=== PATIENT | female | born 1960 | race African-American/Black ===

== ENCOUNTER 2022-10-29 20:41 | Inpatient (IN) | payer MEDICARE, OTHER ==
[~2022-10-29] VITALS: Ht 165.1 cm; Wt 104.3 kg
--- NOTE | 2022-10-29 21:00 | NUR ---
PT BIBRA 350 FOR PSYCH EVAL 2/2 AGGRESSIVE BEHAVIOR & ATTEMPT TO [facility], SAFTEY MEASURES IN PLACE, AWAITING TO BE SEEN BY .
--- NOTE | 2022-10-29 21:26 | NUR ---
COVID SWAB DONE AND SENT TO LAB
[2022-10-29 21:36] LABS: BASOPHILS % (AUTO) 0.5 % (0.0-2.0); EOSINOPHILS % (AUTO) 1.6 % (0.0-6.0); HEMATOCRIT 38 % (33-45); HEMOGLOBIN 12.3 g/dL (11.5-14.8); LYMPHOCYTES # (AUTO) 1.9 K/uL (0.8-4.8); LYMPHOCYTES % (AUTO) 24.3 % (20.0-44.0); MEAN CORPUSCULAR HGB CONC 33 g/dl (31.0-36.0); MEAN CORPUSCULAR VOLUME 83 fL (82-100); MONOCYTES # (AUTO) 0.7 K/uL (0.1-1.30); MONOCYTES % (AUTO) 8.9 % (2.0-12.0); NEUTROPHILS # (AUTO) 4.9 K/uL (1.8-8.9); NEUTROPHILS % (AUTO) 64.7 % (43.0-81.0); PLATELET COUNT (AUTO) 298 K/uL (150-450); RED BLOOD CELL COUNT(AUTO) 4.52 MIL/uL (4.0-5.2); WHITE BLOOD COUNT (AUTO) 7.6 K/uL (4.3-11.0)
--- NOTE | 2022-10-29 21:40 | NUR ---
URINE SAMPLE TAKEN AND SENT TO LAB.
[2022-10-29 21:45] LABS: CALCIUM, SERUM 9.1 mg/dL (8.5-10.1); CARBON DIOXIDE 31 mmol/L (21-32); CHLORIDE 103 mmol/L (98-107); CREATININE 1.3 mg/dL (0.6-1.3); GLUCOSE 96 mg/dL (74-106); POTASSIUM 3.2 mmol/L (3.5-5.1); SODIUM SERUM 141 mmol/L (136-145); UREA NITROGEN, BLOOD 15 mg/dL (7-18)
[2022-10-29 21:51] LABS: ALANINE AMINOTRANSFERASE 39 U/L (12-78); ALBUMIN 3.5 g/dL (3.4-5.0); ALKALINE PHOSPHATASE 101 U/L (46-116); ASPARTATE AMINOTRANSFERASE 34 U/L (15-37); BILIRUBIN,DIRECT 0.1 mg/dL (0.0-0.2); BILIRUBIN,TOTAL 0.5 mg/dL (0.2-1.0); TOTAL PROTEIN, SERUM 7.7 g/dL (6.4-8.2)
[2022-10-29 21:52] LABS: ALCOHOL, BLOOD < 3 mg/dL (0-0)
[2022-10-29 22:24] LABS: BILIRUBIN,URINE NEGATIVE (NEGATIVE); COLOR,URINE YELLOW (YELLOW); LEUKOCYTE ESTERASE ,URINE 1+ (NEGATIVE); NITRITE, URINE NEGATIVE (NEGATIVE); PH,URINE 5.5 (5.0-8.0); PROTEIN,URINE 2+ mg/dl (NEGATIVE); UGLUCOSE NEGATIVE (NEGATIVE); UROBILINOGEN,URINE 0.2 EU/dL (0.2)
[2022-10-29 22:41] LABS: BACTERIA,URINE None seen /HPF (None Seen); SQUAMOUS EPITHELIAL CELL,UR Rare /HPF (None Seen)
--- NOTE | 2022-10-30 01:00 | NUR ---
SEEN BY MARIO HEARD FOR PSYCH EVAL
[2022-10-30] MEDS ORDERED: SENN-18 PO (01:05)
[2022-10-30] MEDS ORDERED: RISP4TAB4 PO (01:05)
[2022-10-30] MEDS ORDERED: MULT-447 PO (01:05)
[2022-10-30] MEDS ORDERED: MIRT-121 PO ×2 (01:05)
[2022-10-30] MEDS ORDERED: AMLO10TA4 PO (01:05)
[2022-10-30] MEDS ORDERED: POLY17PO4 PO (01:05)
[2022-10-30] MEDS ORDERED: LURA40TA PO (01:05)
[2022-10-30] MEDS ORDERED: HYDR-4076 PO (01:05)
[2022-10-30] MEDS ORDERED: QUET25TA PO (01:05)
--- NOTE | 2022-10-30 01:08 | NUR ---
report given to Renalyn RN, pt going to bed 211-B
--- NOTE | 2022-10-30 01:35 | NUR ---
patient transported to gps for cont of care. pt on ra, no complaints of pain and not in any s/sx of distress.
--- NOTE | 2022-10-30 01:40 | NUR ---
RN ADMISION NOTES ADMITTED A 61-Y/O, FEMALE, [facility] INITIALLY PT CAME FROM [facility]. ADMITTED ON A 5150 HOLD FOR DTO/GD. PER HOLD, PT TRIED TO [facility] FROM THE [facility]F AND REFUSING MEDICATIONS. UPON FACE TO FACE EVALUATION, PATIENT IS CONFUSED, DISORGANIZED, EASILY GETS AGITATED/IRRITABLE. VERBALIZATION OF FEELINGS ENCOURAGED. SKIN ASSESSMENT DONE. SKIN INTACT. ALL BELONGINGS WERE CHECKED FOR CONTRABAND. PATIENT'S RIGHTS WERE DISCUSSED AND BOOKLET WAS GIVEN. PATIENT REFUSED TO SIGN ADMISSION PAPERWORK/CONSENT DUE TO CONFUSION. CONTACTED DR. KELSEY AND HOSPITALIST DR. ORTEZ AND INFORMED THEM OF THE ADMISSION. WILL CONTINUE TO MONITOR THE PATIENT Q15 MINUTES FOR SAFETY.
[2022-10-30] MEDS ORDERED: clonazePAM 0.5 MG TABLET PO PRN (02:30)
[2022-10-30] MEDS ORDERED: ACETAMINOPHEN 325 MG TABLET PO PRN (02:30)
[2022-10-30] MEDS ORDERED: TEMAZEPAM 7.5 MG CAPSULE PO PRN (02:30)
[2022-10-30] MEDS ORDERED: BLOOD SUGAR DIAGNOSTIC 1 EACH STRIP IN ONE (02:30)
[2022-10-30] MEDS ORDERED: MAGNESIUM HYDROXIDE 30 ML UDC PO PRN (02:30)
[2022-10-30] MEDS ORDERED: MAG HYDROX/AL HYDROX/SIMETH 30 ML UDC PO PRN (02:30)
[2022-10-30 03:39] VITALS: BP 142/90
[2022-10-30 08:00] VITALS: BP 147/85
[2022-10-30] MEDS: POLYETHYLENE GLYCOL 3350 17 GM POWD.PACK PO SCH ×2 (09:55→16:15)
[2022-10-30] MEDS: hydrALAZINE HCL 25 MG TABLET PO SCH ×3 (09:55→16:16)
[2022-10-30] MEDS: AMLODIPINE BESYLATE 10 MG TABLET PO SCH (09:55)
[2022-10-30] MEDS: DIVALPROEX SODIUM 125 MG TABLET.DR PO SCH ×2 (09:55→21:16)
[2022-10-30] MEDS: QUETIAPINE FUMARATE 25 MG TABLET PO SCH ×2 (09:55→16:15)
[2022-10-30] MEDS ORDERED: HYDR-4209 PO (09:59)
[2022-10-30] MEDS ORDERED: ACET-868 PO (09:59)
[2022-10-30] MEDS ORDERED: CYCL5TAB PO (09:59)
--- NOTE | 2022-10-30 12:02 | NUR ---
JOSEPH Clinical Note: Pt placed on a 5150 hold for danger to others and GD. Per hold, pt was brought to the hospital due to being aggressive at the facility. Patient resides at [facility] [address] [place] [address] ([phone]). JOSEPH spoke with Melissa llanes from [facility] who stated pt is welcomed back. JOSEPH will contact pt's son Robert ([phone]) to discuss treatment/discharge plan.
--- NOTE | 2022-10-30 12:02 | NUR ---
JOSEPH Initial Discharge Note: Patient resides at [facility] [address] [place] [address] ([phone]). JOSEPH spoke with Melissa llanes from [facility] who stated pt is welcomed back. JOSEPH will contact pt's son Robert ([phone]) to discuss treatment/discharge plan. JOSEPH will work with the MD, family, and pt to help coordinate appropriate discharge.
--- NOTE | 2022-10-30 12:07 | NUR ---
Treatment Plan: Pt refused to sign treatment plan and was suspicious.
--- NOTE | 2022-10-30 13:40 | NUR ---
JOSEPH Family Contact: JOSEPH contacted pt's son Robert ([phone]) and left a detailed voicemail of treatment/discharge plan.
[2022-10-30 16:00] VITALS: BP 128/63
[2022-10-30] MEDS ORDERED: POTASSIUM CHLORIDE 20 MEQ TAB.PRT.SR PO ONE (16:00)
--- NOTE | 2022-10-30 18:08 | NUR ---
RN-NOTES PATIENT IN BED INTERMITTENTLY SLEEPING EASILY AROUSED A/OX2,GUARDED.NO ACUTE DISTRESS NOTED.COMPLIANT WITH MEDICATIONS.PATIENT REFUSE GROUPS DESPITE ENCOURAGEMENT. PATIENT PREFERS TO STAY IN THE ROOM AND REST.ALL NEEDS ATTENDED AND ANTICIPATED. PATIENT AMBULATORY WITH STEADY GAIT.WILL CONT.MONITORING FOR SAFETY AND BEHAVIOR.WILL ENDORSE TO INCOMING NURSE FOR THE CONTINUITY OF CARE.
--- NOTE | 2022-10-30 20:07 | NUR ---
TUBER MACHINE CUTTER NOTES:RECEIVED PATIENT IN BED SLEEPING BUT EASY TO AROUSED. A/OX2,GUARDED.NO ACUTE DISTRESS NOTED.BREATHING NON-LABORED WITH EQUAL RISE AND FALL OF THE CHEST.COMPLIANT WITH MEDICATIONS.PATIENT IS AMBULATORY WITH STEADY GAIT. NO C/O PAIN NOR DISCOMFORT AT THIS TIME.ALL NEEDS ATTENDED AND ANTICIPATED. WILL CONTINUE TO MONITOR FOR SAFETY AND BEHAVIOR Q15 MINS WITH THE HELP OF STAFF.
[2022-10-30 20:24] VITALS: BP 130/89
[2022-10-30] MEDS: SENNOSIDES 8.6 MG TABLET PO SCH (21:16)
[2022-10-30] MEDS: MIRTAZAPINE 15 MG TABLET PO SCH (21:16)
[2022-10-31 07:18] LABS: CHOLESTEROL 223 mg/dL (<200); HDL CHOLESTEROL 44 mg/dL (40-60); LDL 155 mg/dL (0-99); TRIGLYCERIDES 116 mg/dL (30-150)
[2022-10-31 07:19] LABS: ALBUMIN 3.1 g/dL (3.4-5.0); BILIRUBIN,TOTAL 0.4 mg/dL (0.2-1.0); CALCIUM, SERUM 8.9 mg/dL (8.5-10.1); CREATININE 1.2 mg/dL (0.6-1.3); POTASSIUM 3.7 mmol/L (3.5-5.1)
[2022-10-31 08:00] VITALS: BP 141/88
[2022-10-31] MEDS: DIVALPROEX SODIUM 125 MG TABLET.DR PO SCH ×2 (08:11→21:12)
[2022-10-31] MEDS: POLYETHYLENE GLYCOL 3350 17 GM POWD.PACK PO SCH ×2 (08:11→16:19)
[2022-10-31] MEDS: hydrALAZINE HCL 25 MG TABLET PO SCH ×3 (08:11→16:19)
[2022-10-31] MEDS: QUETIAPINE FUMARATE 25 MG TABLET PO SCH ×2 (08:11→16:19)
[2022-10-31] MEDS: AMLODIPINE BESYLATE 10 MG TABLET PO SCH (08:25)
[2022-10-31 16:00] VITALS: BP 157/96
--- NOTE | 2022-10-31 18:19 | NUR ---
RN-NOTES PATIENT VISIBLE IN THE UNIT A/OX2,GUARDED.NO ACUTE DISTRESS NOTED.COMPLIANT WITH MEDICATIONS.PATIENT ATTENDED ACTIVITY GROUPS.ALL NEEDS ATTENDED AND ANTICIPATED. PATIENT AMBULATORY WITH STEADY GAIT.WILL CONT.MONITORING FOR SAFETY AND BEHAVIOR.WILL ENDORSE TO INCOMING NURSE FOR THE CONTINUITY OF CARE.
--- NOTE | 2022-10-31 19:35 | NUR ---
FOOD CRITIC NOTES:RECEIVED PATIENT RESTING QUIETLY IN BED. A/OX2, GUARDED, DELUSIONAL, NO ACUTE DISTRESS NOTED. ON ROOM AIR. BREATHING NON-LABORED WITH EQUAL RISE AND FALL OF THE CHEST.COMPLIANT WITH MEDICATIONS.PATIENT IS AMBULATORY WITH STEADY GAIT. NO C/O PAIN NOR DISCOMFORT AT THIS TIME. BED IN LOWEST,LOCKED POSITIONED WITH SIDE RAILS UP X 2A. LL NEEDS ATTENDED AND ANTICIPATED. WILL CONTINUE TO MONITOR FOR SAFETY AND BEHAVIOR Q15 MINS WITH THE HELP OF STAFF.
[2022-10-31 20:00] VITALS: BP 157/88
[2022-10-31] MEDS: SENNOSIDES 8.6 MG TABLET PO SCH (21:12)
[2022-10-31] MEDS: MIRTAZAPINE 15 MG TABLET PO SCH (21:12)
[2022-11-01 08:00] VITALS: BP 148/97
[2022-11-01] MEDS: POLYETHYLENE GLYCOL 3350 17 GM POWD.PACK PO SCH ×2 (08:07→16:50)
[2022-11-01] MEDS: DIVALPROEX SODIUM 125 MG TABLET.DR PO SCH ×2 (08:07→21:05)
[2022-11-01] MEDS: QUETIAPINE FUMARATE 25 MG TABLET PO SCH ×2 (08:08→16:50)
[2022-11-01] MEDS: hydrALAZINE HCL 25 MG TABLET PO SCH ×3 (08:08→16:51)
[2022-11-01] MEDS: AMLODIPINE BESYLATE 10 MG TABLET PO SCH (08:08)
[2022-11-01 16:00] VITALS: BP 138/79
[2022-11-01 20:00] VITALS: BP 148/84
--- NOTE | 2022-11-01 20:39 | NUR ---
DESIGN ANALYST NOTES:RECEIVED PATIENT IN BED ASLEEP . A/OX2, GUARDED, DELUSIONAL, NO ACUTE DISTRESS NOTED. ON ROOM AIR. BREATHING NON-LABORED WITH EQUAL RISE AND FALL OF THE CHEST.COMPLIANT WITH MEDICATIONS.PATIENT IS AMBULATORY WITH STEADY GAIT. NO C/O PAIN NOR DISCOMFORT AT THIS TIME. ASSISTING ON TURNING AND REPOSITIONING Q2H AND PRN FOR CIRCULATION AND COMFORT.BED IN LOWEST,LOCKED POSITIONED WITH SIDE RAILS UP X 2. ALL NEEDS ATTENDED AND ANTICIPATED. WILL CONTINUE TO MONITOR FOR SAFETY AND BEHAVIOR Q15 MINS WITH THE HELP OF STAFF.
[2022-11-01] MEDS: SENNOSIDES 8.6 MG TABLET PO SCH (21:05)
--- NOTE | 2022-11-02 07:50 | NUR ---
RN OPENING NOTE RECEIVED PATIENT AWAKE IN BED, RESTING, A/O X 1-2, COOPERATIVE, DELUSIONAL. NO S/S OF PAIN NOTED AT THIS TIME. ON ROOM AIR, BREATHING EVEN AND UNLABORED, NO DISTRESS OR SHORTNESS OF BREATH NOTED. PATIENT IS COMPLIANT WITH MEDICATIONS. PATIENT DENIES SUICIDE IDEATION AND HOMICIDAL IDEATIONS AT THIS TIME. PATIENT EDUCATED ON THE USE OF CALL LIGHT. FALL AND SAFETY MEASURES IN PLACE BED ALARM ON, BED IN LOW AND LOCK POSITION, CALL LIGHT AND TABLE WITHIN EASY REACH, SIDE RAILS UP X2. WILL CONTINUE TO MONITOR Q15 MINUTES WITH THE HELP OF STAFF TO MAINTAIN SAFETY.
[2022-11-02 08:00] VITALS: BP 161/76
[2022-11-02] MEDS: POLYETHYLENE GLYCOL 3350 17 GM POWD.PACK PO SCH ×3 (08:34→16:48)
[2022-11-02] MEDS: AMLODIPINE BESYLATE 10 MG TABLET PO SCH (08:35)
[2022-11-02] MEDS: DIVALPROEX SODIUM 125 MG TABLET.DR PO SCH ×3 (08:35→16:47)
[2022-11-02] MEDS: hydrALAZINE HCL 25 MG TABLET PO SCH ×3 (08:36→16:48)
[2022-11-02] MEDS: QUETIAPINE FUMARATE 25 MG TABLET PO SCH (08:36)
[2022-11-02 12:23] VITALS: BP 141/73
[2022-11-02 20:30] VITALS: BP 149/79
[2022-11-02] MEDS: SENNOSIDES 8.6 MG TABLET PO SCH (21:34)
[2022-11-02] MEDS: QUETIAPINE FUMARATE 100 MG TABLET PO SCH (21:34)
[2022-11-03 08:00] VITALS: BP 147/77
[2022-11-03] MEDS: POLYETHYLENE GLYCOL 3350 17 GM POWD.PACK PO SCH ×3 (08:19→17:00)
[2022-11-03] MEDS: DIVALPROEX SODIUM 125 MG TABLET.DR PO SCH ×3 (08:20→17:14)
[2022-11-03] MEDS: AMLODIPINE BESYLATE 10 MG TABLET PO SCH (08:21)
[2022-11-03] MEDS: hydrALAZINE HCL 25 MG TABLET PO SCH ×3 (08:21→16:36)
[2022-11-03] MEDS: QUETIAPINE FUMARATE 25 MG TABLET PO SCH (08:25)
[2022-11-03 16:00] VITALS: BP_SYST 148; BP_SYST 150; BP_DIAS 55; BP_DIAS 87
--- NOTE | 2022-11-03 19:30 | NUR ---
GPS RN OPENING NOTE RECEIVED PT AWAKE IN BED. A/O X1-2 AND ABLE TO MAKE NEEDS KNOWN. PT STABLE ON ROOM AIR. NO SOB OR S/S OF RESPIRATORY DISTRESS. BREATHING EVEN AND UNLABORED. NO COMPLAINTS OF PAIN OR DISCOMFORT AT THIS TIME. DELUSIONAL AND COOPERATIVE. DENIES SI/HI AT THIS TIME. AMBULATORY WITH STEADY GAIT.WILL CONT TO MONITOR Q15MIN FOR SAFETY AND BEHAVIOR.
[2022-11-03 20:03] VITALS: BP 133/61
[2022-11-03] MEDS: QUETIAPINE FUMARATE 100 MG TABLET PO SCH (21:24)
[2022-11-03] MEDS: SENNOSIDES 8.6 MG TABLET PO SCH (21:24)
--- NOTE | 2022-11-04 06:38 | NUR ---
GPS RN CLOSING NOTE PT AWAKE IN BED. A/O X1-2 AND ABLE TO MAKE NEEDS KNOWN. PT STABLE ON ROOM AIR. NO SOB OR S/S OF RESPIRATORY DISTRESS. BREATHING EVEN AND UNLABORED. NO COMPLAINTS OF PAIN OR DISCOMFORT AT THIS TIME. DELUSIONAL AND COOPERATIVE. DENIES SI/HI AT THIS TIME. AMBULATORY WITH STEADY GAIT. MED COMPLIANT THIS SHIFT. WILL CONT TO MONITOR Q15MIN FOR SAFETY AND BEHAVIOR AND WILL ENDORSE TO ONCOMING NURSE FOR MITCHELL.
[2022-11-04 08:00] VITALS: BP 150/78
[2022-11-04] MEDS: POLYETHYLENE GLYCOL 3350 17 GM POWD.PACK PO SCH ×2 (09:17→16:58)
[2022-11-04] MEDS: QUETIAPINE FUMARATE 25 MG TABLET PO SCH (09:18)
[2022-11-04] MEDS: hydrALAZINE HCL 25 MG TABLET PO SCH ×4 (09:19→16:55)
[2022-11-04] MEDS: DIVALPROEX SODIUM 125 MG TABLET.DR PO SCH ×4 (09:19→16:55)
[2022-11-04] MEDS: AMLODIPINE BESYLATE 10 MG TABLET PO SCH (09:20)
[2022-11-04 15:57] VITALS: BP 152/67
[2022-11-04 20:21] VITALS: BP 133/66
[2022-11-04] MEDS: QUETIAPINE FUMARATE 100 MG TABLET PO SCH (20:47)
[2022-11-04] MEDS: SENNOSIDES 8.6 MG TABLET PO SCH (21:04)
[2022-11-05 08:00] VITALS: BP 151/90
[2022-11-05] MEDS: QUETIAPINE FUMARATE 25 MG TABLET PO SCH (08:09)
[2022-11-05] MEDS: DIVALPROEX SODIUM 125 MG TABLET.DR PO SCH ×3 (08:10→16:26)
[2022-11-05] MEDS: AMLODIPINE BESYLATE 10 MG TABLET PO SCH (08:10)
[2022-11-05] MEDS: hydrALAZINE HCL 25 MG TABLET PO SCH ×3 (08:10→16:26)
[2022-11-05] MEDS: POLYETHYLENE GLYCOL 3350 17 GM POWD.PACK PO SCH ×2 (08:31→16:27)
--- NOTE | 2022-11-05 10:55 | NUR ---
Court Notification: SW attempted to contact pt's son Robert ([phone]) and left a voicemail of [phone].
--- NOTE | 2022-11-05 10:56 | NUR ---
Court Hearing: Patient's court hearing for 7160 was today and it was upheld for GD.
[2022-11-05 16:05] VITALS: BP 160/89
[2022-11-05] MEDS ORDERED: QUETIAPINE FUMARATE 25 MG TABLET PO SCH (17:00)
[2022-11-05 19:59] VITALS: BP 138/75
[2022-11-05 20:30] VITALS: BP 138/75
[2022-11-05] MEDS: QUETIAPINE FUMARATE 100 MG TABLET PO SCH (21:08)
[2022-11-05] MEDS: SENNOSIDES 8.6 MG TABLET PO SCH (21:08)
--- NOTE | 2022-11-06 06:40 | NUR ---
RN NOTES - PATIENT SLEEPING INTERMITTENTLY. ABLE TO VERBALIZE NEEDS. NO SI/HI AT THIS TIME. GUARDED AND WITH DELUSIONAL THOUGHTS OF BEING . REORIENTED TO REALITY. ROOM CHECKED FOR CONTRABAND. ALL DUE MEDS GIVEN AND NEEDS ATTENDED. AMBULATORY WITH STEADY GAIT. BED LOCKED AND IN LOW POSITION, SIDE RAILS UP X2, BED ALARM ON, CALL LIGHT WITHIN REACH. WILL ENDORSE TO NEXT SHIFT FOR MITCHELL.
[2022-11-06 08:00] VITALS: BP 154/81
[2022-11-06] MEDS: QUETIAPINE FUMARATE 25 MG TABLET PO SCH (08:43)
[2022-11-06] MEDS: POLYETHYLENE GLYCOL 3350 17 GM POWD.PACK PO SCH ×2 (08:43→16:11)
[2022-11-06] MEDS: DIVALPROEX SODIUM 125 MG TABLET.DR PO SCH ×3 (08:43→16:11)
[2022-11-06] MEDS: AMLODIPINE BESYLATE 10 MG TABLET PO SCH (08:44)
[2022-11-06] MEDS: hydrALAZINE HCL 25 MG TABLET PO SCH ×3 (08:44→16:12)
[2022-11-06 16:00] VITALS: BP 144/76
--- NOTE | 2022-11-06 17:42 | NUR ---
RN-NOTES PATIENT IS VISIBLE IN THE UNIT PARTICIPATING IN THE GROUP A/O X1-2 GUARDED, NO ACUTE DISTRESS NOTED. COOPERATIVE WITH STAFF .COMPLIANT WITH MEDICATIONS. AMBULATORY STEADY GAIT. ALL NEEDS ATTENDED AND ANTICIPATED. WILL CONT. MONITORING FOR SAFETY AND BEHAVIOR.WILL ENDORSE TO INCOMING SHIFT FOR THE CONTINUITY OF CARE.
--- NOTE | 2022-11-06 19:42 | NUR ---
GPS RN OPENING NOTE RECEIVED PT AWAKE IN DINING ROOM WATCHING TELEVISION. A/O X1-2 AND ABLE TO MAKE NEEDS KNOWN. PT STABLE ON ROOM AIR. NO SOB OR S/S OF RESPIRATORY DISTRESS. BREATHING EVEN AND UNLABORED. NO COMPLAINTS OF PAIN OR DISCOMFORT AT THIS TIME. DELUSIONAL AND COOPERATIVE. DENIES SI/HI AT THIS TIME. AMBULATORY WITH STEADY GAIT.SAFETY PRECAUTIONS MAINTAINED. WILL CONT TO MONITOR Q15MIN FOR SAFETY AND BEHAVIOR
[2022-11-06 20:00] VITALS: BP 154/74
[2022-11-06] MEDS: QUETIAPINE FUMARATE 100 MG TABLET PO SCH (20:44)
[2022-11-06] MEDS: SENNOSIDES 8.6 MG TABLET PO SCH (21:34)
[2022-11-07 08:00] VITALS: BP 152/93
[2022-11-07] MEDS: DIVALPROEX SODIUM 125 MG TABLET.DR PO SCH ×3 (08:15→16:54)
[2022-11-07] MEDS: AMLODIPINE BESYLATE 10 MG TABLET PO SCH (08:15)
[2022-11-07] MEDS: QUETIAPINE FUMARATE 25 MG TABLET PO SCH (08:15)
[2022-11-07] MEDS: POLYETHYLENE GLYCOL 3350 17 GM POWD.PACK PO SCH ×2 (08:15→16:53)
[2022-11-07] MEDS: hydrALAZINE HCL 25 MG TABLET PO SCH ×3 (08:16→16:55)
[2022-11-07 16:00] VITALS: BP 159/93
--- NOTE | 2022-11-07 17:56 | NUR ---
RN-NOTES PATIENT IS VISIBLE IN THE UNIT PARTICIPATING IN THE GROUP A/O X1-2 GUARDED, NO ACUTE DISTRESS NOTED. COOPERATIVE WITH STAFF .COMPLIANT WITH MEDICATIONS. NOTED WITH EPISODE OF MUMBLING AND TALKING TO SELF.AMBULATORY STEADY GAIT. ALL NEEDS ATTENDED AND ANTICIPATED. WILL CONT. MONITORING FOR SAFETY AND BEHAVIOR.WILL ENDORSE TO INCOMING SHIFT FOR THE CONTINUITY OF CARE.
--- NOTE | 2022-11-07 19:29 | NUR ---
GPS RN NOTE, RECEIVED PATIENT AWAKE AND IN BED, NO S/S OR COMPLAINTS OF PAIN AT THIS TIME. PATIENT IS DISPLAYING NO S/S OF APPARENT DISTRESS AT THIS TIME. PATIENT BREATHING IS UNLABORED WITH EQUAL RISE AND FALL OF THE CHEST. PATIENT IS ALERT AND ORIENTED X 2 ON ROOM AIR WITH A SPO2 99%. PATIENT IS COMPLIANT WITH MEDICATIONS, RESPONDING TO INTERNAL STIMULI, MAKES NEEDS KNOWN, AND COOPERATIVE. PATIENT DENIES SUICIDAL AND HOMICIDAL IDEATIONS AT THIS TIME. PATIENT ASSISTED WITH TURNING AND REPOSITIONING Q2HR AND PRN FOR COMFORT AND CIRCULATION. PATIENT HAS NO NEEDS AT THIS TIME. PATIENT EDUCATED ON THE USE OF THE CALL RODRIGUES. PATIENT BED SIDE RAILS UP X 2 FOR SAFETY. PATIENT BED IS LOCKED, LOW, WITH BED ALARM ON. WILL CONTINUE TO MONITOR THIS PATIENT Q15 MINUTES WITH THE HELP OF STAFF TO MAINTAIN SAFETY.
[2022-11-07 20:00] VITALS: BP 120/77
[2022-11-07] MEDS: QUETIAPINE FUMARATE 100 MG TABLET PO SCH ×2 (21:00→21:12)
[2022-11-07] MEDS: SENNOSIDES 8.6 MG TABLET PO SCH ×2 (21:12→21:18)
--- NOTE | 2022-11-07 21:18 | NUR ---
GPS RN NOTE, PATIENT REFUSED SEROQUEL 200MG PO 2100 AND SENOKOT 8.6MG PO HS. OFFERED SEROQUEL AND SENOKOT THREE TIMES AND STILL PATIENT REFUSED STATING, " NO I DON'T TAKE THAT AND I WANT TI TALK TO MY DOCTOR ". EDUCATED PATIENT ON THE RISK AND BENEFITS OF TAKING AND REFUSING AFOREMENTIONED MEDICATION. WILL CONTINUE TO MONITOR THIS PATIENT WITH THE HELP OF STAFF.
[2022-11-08 08:00] VITALS: BP 157/90
[2022-11-08] MEDS: AMLODIPINE BESYLATE 10 MG TABLET PO SCH (08:05)
[2022-11-08] MEDS: QUETIAPINE FUMARATE 25 MG TABLET PO SCH (08:05)
[2022-11-08] MEDS: DIVALPROEX SODIUM 125 MG TABLET.DR PO SCH ×3 (08:05→17:14)
[2022-11-08] MEDS: hydrALAZINE HCL 25 MG TABLET PO SCH ×3 (08:06→17:14)
[2022-11-08] MEDS: POLYETHYLENE GLYCOL 3350 17 GM POWD.PACK PO SCH ×2 (08:06→17:14)
--- NOTE | 2022-11-08 09:24 | NUR ---
RN-NOTES NOTED PATIENT PACING IN THE HALLWAY AND LAUGHING TO SELF,REDIRECTED KLONOPIN 0.5MG P.O GIVEN PRN ORDER. WILL CONT.MONITORING FOR SAFETY AND BEHAVIOR.
--- NOTE | 2022-11-08 10:25 | NUR ---
RN-NOTES PATIENT IN THE DAY ROOM PARTICIPATING IN THE GROUP ,CALM,NO ACUTE DISTRESS NOTED.
[2022-11-08 16:00] VITALS: BP 118/64
--- NOTE | 2022-11-08 19:25 | NUR ---
GPS RN NOTE, RECEIVED PATIENT AWAKE AND IN BED, NO S/S OR COMPLAINTS OF PAIN AT THIS TIME. PATIENT IS DISPLAYING NO S/S OF APPARENT DISTRESS AT THIS TIME. PATIENT BREATHING IS UNLABORED WITH EQUAL RISE AND FALL OF THE CHEST. PATIENT IS ALERT AND ORIENTED X 2 ON ROOM AIR WITH A SPO2 97%. PATIENT IS SELECTIVE WITH MEDICATIONS, RESPONDING TO INTERNAL STIMULI, MAKES NEEDS KNOWN, AND COOPERATIVE. PATIENT DENIES SUICIDAL AND HOMICIDAL IDEATIONS AT THIS TIME. PATIENT ASSISTED WITH TURNING AND REPOSITIONING Q2HR AND PRN FOR COMFORT AND CIRCULATION. PATIENT HAS NO NEEDS AT THIS TIME. PATIENT EDUCATED ON THE USE OF THE CALL RODRIGUES. PATIENT BED SIDE RAILS UP X 2 FOR SAFETY. PATIENT BED IS LOCKED, LOW, WITH BED ALARM ON. WILL CONTINUE TO MONITOR THIS PATIENT Q15 MINUTES WITH THE HELP OF STAFF TO MAINTAIN SAFETY.
[2022-11-08 20:00] VITALS: BP 119/65
[2022-11-08] MEDS: QUETIAPINE FUMARATE 100 MG TABLET PO SCH (21:13)
[2022-11-08] MEDS: SENNOSIDES 8.6 MG TABLET PO SCH (21:13)
[2022-11-09 08:00] VITALS: BP 154/84
[2022-11-09] MEDS: POLYETHYLENE GLYCOL 3350 17 GM POWD.PACK PO SCH ×2 (08:01→16:10)
[2022-11-09] MEDS: DIVALPROEX SODIUM 125 MG TABLET.DR PO SCH ×3 (08:02→16:10)
[2022-11-09] MEDS: AMLODIPINE BESYLATE 10 MG TABLET PO SCH (08:02)
[2022-11-09] MEDS: hydrALAZINE HCL 25 MG TABLET PO SCH ×3 (08:02→16:10)
[2022-11-09] MEDS: QUETIAPINE FUMARATE 25 MG TABLET PO SCH (08:03)
[2022-11-09 16:00] VITALS: BP 160/79
[2022-11-09 19:41] VITALS: BP 142/72
[2022-11-09] MEDS: QUETIAPINE FUMARATE 100 MG TABLET PO SCH (20:25)
[2022-11-09] MEDS: SENNOSIDES 8.6 MG TABLET PO SCH (21:05)
[2022-11-10 08:00] VITALS: BP 150/90
[2022-11-10] MEDS: DIVALPROEX SODIUM 125 MG TABLET.DR PO SCH ×3 (08:03→17:05)
[2022-11-10] MEDS: QUETIAPINE FUMARATE 25 MG TABLET PO SCH (08:03)
[2022-11-10] MEDS: AMLODIPINE BESYLATE 10 MG TABLET PO SCH (08:04)
[2022-11-10] MEDS: hydrALAZINE HCL 25 MG TABLET PO SCH ×3 (08:04→17:05)
[2022-11-10] MEDS: POLYETHYLENE GLYCOL 3350 17 GM POWD.PACK PO SCH ×2 (08:06→16:59)
--- NOTE | 2022-11-10 09:20 | NUR ---
RN-CO: RECEIVED PATIENT IN HER ROOM ,EATING BREAKFAST. SHE DENIED PAIN AND DISCOMFORTS. SHE THINKS THAT SOMETHING IS CRAWLING INSIDE HER UPPER ARM. SHE HAS APPROPRIATE AFFECT, AT TIMES IT IS INCONGRUENT. SHE IS REDIRECTABLE TO STAFF.
[2022-11-10] MEDS ORDERED: POLYVINYL ALCOHOL 15 ML BOTTLE EACHEYE PRN (13:00)
[2022-11-10 16:00] VITALS: BP 155/93
[2022-11-10 19:34] VITALS: BP 150/86
[2022-11-10] MEDS: SENNOSIDES 8.6 MG TABLET PO SCH (21:11)
[2022-11-10] MEDS: QUETIAPINE FUMARATE 100 MG TABLET PO SCH (21:11)
[2022-11-11 08:13] VITALS: BP 108/62
[2022-11-11] MEDS: QUETIAPINE FUMARATE 25 MG TABLET PO SCH (08:15)
[2022-11-11] MEDS: DIVALPROEX SODIUM 125 MG TABLET.DR PO SCH ×3 (08:16→18:01)
[2022-11-11] MEDS: AMLODIPINE BESYLATE 10 MG TABLET PO SCH (08:17)
[2022-11-11] MEDS: hydrALAZINE HCL 25 MG TABLET PO SCH ×3 (08:17→18:01)
[2022-11-11] MEDS: POLYETHYLENE GLYCOL 3350 17 GM POWD.PACK PO SCH ×2 (08:18→17:00)
[2022-11-11 16:02] VITALS: BP 154/90
[2022-11-11 20:04] VITALS: BP 155/90
[2022-11-11] MEDS: QUETIAPINE FUMARATE 100 MG TABLET PO SCH (20:39)
[2022-11-11] MEDS: SENNOSIDES 8.6 MG TABLET PO SCH (21:01)
[2022-11-12 08:00] VITALS: BP 144/84
[2022-11-12] MEDS: hydrALAZINE HCL 25 MG TABLET PO SCH ×3 (08:24→17:03)
[2022-11-12] MEDS: QUETIAPINE FUMARATE 25 MG TABLET PO SCH (08:24)
[2022-11-12] MEDS: DIVALPROEX SODIUM 125 MG TABLET.DR PO SCH ×3 (08:25→17:03)
[2022-11-12] MEDS: AMLODIPINE BESYLATE 10 MG TABLET PO SCH (08:25)
[2022-11-12] MEDS: POLYETHYLENE GLYCOL 3350 17 GM POWD.PACK PO SCH ×2 (08:26→17:00)
[2022-11-12 16:00] VITALS: BP 132/86
[2022-11-12 19:52] VITALS: BP 141/83
[2022-11-12] MEDS: QUETIAPINE FUMARATE 100 MG TABLET PO SCH (21:02)
[2022-11-12] MEDS: SENNOSIDES 8.6 MG TABLET PO SCH (21:02)
[2022-11-13 08:00] VITALS: BP 145/90
[2022-11-13] MEDS: QUETIAPINE FUMARATE 25 MG TABLET PO SCH (08:04)
[2022-11-13] MEDS: hydrALAZINE HCL 25 MG TABLET PO SCH ×3 (08:04→16:30)
[2022-11-13] MEDS: AMLODIPINE BESYLATE 10 MG TABLET PO SCH (08:04)
[2022-11-13] MEDS: POLYETHYLENE GLYCOL 3350 17 GM POWD.PACK PO SCH ×2 (08:05→16:31)
[2022-11-13] MEDS: DIVALPROEX SODIUM 125 MG TABLET.DR PO SCH ×3 (08:05→16:31)
[2022-11-13 16:00] VITALS: BP 129/69
--- NOTE | 2022-11-13 19:30 | NUR ---
GPS RN NOTE, RECEIVED PATIENT AWAKE AND IN BED, NO S/S OR COMPLAINTS OF PAIN AT THIS TIME. PATIENT IS DISPLAYING NO S/S OF APPARENT DISTRESS AT THIS TIME. PATIENT BREATHING IS UNLABORED WITH EQUAL RISE AND FALL OF THE CHEST. PATIENT IS ALERT AND ORIENTED X 2 ON ROOM AIR WITH A SPO2 98%. PATIENT IS SELECTIVE WITH MEDICATIONS, RESPONDING TO INTERNAL STIMULI, MAKES NEEDS KNOWN, AND COOPERATIVE. PATIENT DENIES SUICIDAL AND HOMICIDAL IDEATIONS AT THIS TIME. PATIENT ASSISTED WITH TURNING AND REPOSITIONING Q2HR AND PRN FOR COMFORT AND CIRCULATION. PATIENT HAS NO NEEDS AT THIS TIME. PATIENT EDUCATED ON THE USE OF THE CALL RODRIGUES. PATIENT BED SIDE RAILS UP X 2 FOR SAFETY. PATIENT BED IS LOCKED, LOW, WITH BED ALARM ON. WILL CONTINUE TO MONITOR THIS PATIENT Q15 MINUTES WITH THE HELP OF STAFF TO MAINTAIN SAFETY.
[2022-11-13 19:33] VITALS: BP 148/93
[2022-11-13] MEDS: QUETIAPINE FUMARATE 100 MG TABLET PO SCH (21:06)
[2022-11-13] MEDS: SENNOSIDES 8.6 MG TABLET PO SCH (21:06)
[2022-11-14 08:00] VITALS: BP 123/79
--- NOTE | 2022-11-14 08:01 | NUR ---
Dr. Cantrell gave an order to D/C hold and D/C to [facility] and to follow up with the psych and medical doctors. Pt without distress, denies suicidal and homicidal and pt. denies visual and auditory hallucinations. Belongings ready and discharge papers ready. Addendum: 11/14/22 at 0938 by DESIREE MATHEW RN Dr. Cantrell ordered to continue same meds including prn
--- NOTE | 2022-11-14 08:02 | NUR ---
SW Discharge Note: Patient will be discharged to long term facility [facility] [address] [place] [address] ([phone]). Please arrange Ambulance transportation for patient to be picked up at 1PM. Staff Registered Nurse spoke with Jason lovell ([phone]) who stated pt is accepted. Patient is alert and oriented x2 and is not able to plan for self-care at this time but is willing to accept care provided for her at the facility. Patient denies suicidal or homicidal ideation and is aware and agreeable with discharge plans. Pts son Robert ([phone]) is aware and agreeable. Patient will follow-up at the facility with Psychiatrist, Dr. Friedman located at [address], [place] [address]; ([phone]) and Accuracy Expert, Dr. Foley located at [address] [facility], [place], [place] [address]; ([phone]).
[2022-11-14] MEDS: QUETIAPINE FUMARATE 25 MG TABLET PO SCH (08:10)
[2022-11-14] MEDS: DIVALPROEX SODIUM 125 MG TABLET.DR PO SCH ×2 (08:11→12:07)
[2022-11-14] MEDS: AMLODIPINE BESYLATE 10 MG TABLET PO SCH (08:12)
[2022-11-14] MEDS: hydrALAZINE HCL 25 MG TABLET PO SCH ×2 (08:15→12:07)
[2022-11-14] MEDS: POLYETHYLENE GLYCOL 3350 17 GM POWD.PACK PO SCH (08:15)
--- NOTE | 2022-11-14 10:50 | NUR ---
Bret Amos NP was in the unit and made aware of the discharge and reconciled meds to continue in the facility.
--- NOTE | 2022-11-14 11:16 | NUR ---
Report give to Dru CARRERA over the facility.
[2022-11-14 12:07] VITALS: BP 126/74
--- NOTE | 2022-11-14 13:30 | NUR ---
Pt. left the unit with belongings via ambulance and transported via a gurney. Left without distress and on stable condition. Addendum: 11/14/22 at 1340 by DESIREE MATHEW RN Pt. signed the discharge papers.
== END 2022-11-14 13:30 | DRG 885 ==
LOC: ER 20:48 → GPS 10-30 00:52
PROVIDERS: ADMIT Psychiatry & Neurology Psychiatry; ATTEND Internal Medicine
DX: F31.9 Bipolar disorder, unspecified (principal); F03.94 Unspecified dementia, unspecified severity, with anxiety; F03.911 Unspecified dementia, unspecified severity, with agitation; N39.0 Urinary tract infection, site not specified; E44.1 Mild protein-calorie malnutrition; F20.9 Schizophrenia, unspecified; Z20.822 Contact with and (suspected) exposure to COVID-19; K59.09 Other constipation; Z91.81 History of falling; Z79.899 Other long term (current) drug therapy; I10 Essential (primary) hypertension; E88.09 Other disorders of plasma-protein metabolism, not elsewhere classified
CPT/HCPCS: 36415; 80048-TC; 80053-TC; 80061-TC; 80076-TC; 80164-TC; 81001; 82962-TC; 85025-TC; 87081-TC; C9803; G0480